=== PATIENT | female | born 1960 | race Caucasian/White ===

== ENCOUNTER → 2024-11-24 15:39 | Outpatient (CLI) | payer BC, SELFPAY ==
--- NOTE | 2024-11-24 15:49 | DI.RAD.S_ITS ---
PROCEDURE: XR FOOT RT MIN 3V INDICATIONS: RIGHT FOOT PAIN TECHNIQUE: 3 views of the foot were acquired. COMPARISON: None. FINDINGS: Bones: No fractures or dislocations. No suspicious bony lesions. Soft tissues: No tibiotalar joint effusion. Achilles tendon appears normal. IMPRESSION: No acute bony abnormality. Dictated by: Wilbur Sol M.D. on 11/24/2024 at 21:19 Approved by: Wilbur Sol M.D. on 11/24/2024 at 21:20
== END ==
PROVIDERS: PCP Family Medicine; Referring Provider Family Medicine; Visit Provider Family Medicine
DX: M79.671 Pain in right foot (principal)
CPT/HCPCS: 73630